=== PATIENT | female | born 1980 | race Caucasian/White ===

== ENCOUNTER 2022-06-06 17:03 | Emergency (ER) | payer SELFPAY ==
--- OUTSIDE RECORDS SUMMARY | 2022-06-06 17:06 | XMS REPORT | Continuity of Care Document ---
:1980 Author Organization [facility] t Address [address] [facility] [place] [address] Care Team Providers Name Role Phone Ronit MORGAN, Pham Primary Care Physician [phone] ISRA SESAY Attending Clinician Unavailable Problems This patient has no known problems. Allergies, Adverse Reactions, Alerts This patient has no known allergies or adverse reactions. Social History Social Habit Start Date Stop Date Quantity Comments Source History of Occasional tobacco Method ist tobacco use smoker Hospital Tobacco use and 2019-06-07 2019-06-07 Smokeless tobacco [facility] exposure 00:00:00 00:00:00 non-user Hospital Alcohol intake 2019-06-07 2019-06-07 [facility]finding[facility] Hospita l Sex Assigned At [birth year] [facility] 00:00:00 00:00:00 Hospital Smoking Status Start Date Stop Date Source Occasional tobacco smoker 2019-06-07 00:00:00 [facility] Medications This patient has no known medications. Procedures This patient has no known procedures. Encounters Start End Encounter Admission Attending Care Care Encounter Source Date/Time Date/Time Type Type Clinicians Facility Department ID 2019-06-07 2019-06-07 Emergency [facility] [id number] [place] 00:00:00 00:00:00 ISRA [address] Results This patient has no known results.
[2022-06-06 17:52] LABS: Hematocrit 38.5 % (36.0-45.0); Lymphocytes % 32.8 % (15.3-44.8); MCV 87.8 fL (80-100); MPV 8.4 fL (7.6-11.3); RBC Red Blood Cell Count 4.38 M/uL (3.86-4.86)
[2022-06-06 17:55] LABS: Specific Gravity 1.005 (1.005-1.030); Urine Bilirubin NEGATIVE (Negative); Urine Blood Negative (Negative); Urine Clarity Clear (Clear); Urine Color Colorless (Yellow); Urine Glucose NEGATIVE (Negative); Urine Protein NEGATIVE (Negative); Urine Urobilinogen Normal (Normal); Urine pH 6.5 (5.0-7.0)
[2022-06-06] MEDS ORDERED: LIDOCAINE VISCOUS 2% SOLN 15 ML UDC ONE (18:02)
[2022-06-06] MEDS ORDERED: MAGNES/ALUMIN/SIMET 30ML UCUP ONE (18:03)
[2022-06-06 18:08] LABS: ALT/SGPT 23 U/L (13-56); AST/SGOT 16 U/L (15-37); Albumin 3.6 g/dL (3.4-5.0); Alkaline Phosphatase 68 U/L (45-117); BUN Blood Urea Nitrogen 10 mg/dL (7-18); Bicarbonate 24 mEq/L (21-32); Bilirubin Total 0.2 mg/dL (0.2-1.0); Glomerular Filtration Rate 77 ml/min (=/>90); Glucose Level 126 mg/dL (74-106); Magnesium 2.4 mg/dL (1.6-2.4); Potassium 3.5 mEq/L (3.5-5.1); Protein, Total 7.1 g/dL (6.4-8.2); Sodium Level 137 mEq/L (136-145); Troponin High Sensitivity 3.3 pg/mL (<58.9)
[2022-06-06 18:15] LABS: Bilirubin Direct < 0.1 mg/dL (0-0.2)
[2022-06-06] MEDS ORDERED: KETOROLAC 30 MG/ML INJ ONE (18:30)
--- NOTE | 2022-06-06 18:41 | ER ---
Nurse's Notes [facility] Name: Desiree Landeros Age: 42 yrs Sex: Female : 1980 Arrival Date: 06/06/2022 Time: 17:05 Bed 20 Private MD: Diagnosis: Chest pain, unspecified;Dorsalgia, unspecified Presentation: 06/06 17:22 Chief complaint: Patient states: CP that radiates to the Right arm and neck for about a vg1 week; also stated "may have aspirated yesterday while I was eating a sandwich, I was rushing while eating and talking and I inhaled and started to choke and it felt like the food split to either side of my chest, I tried to cough it up but nothing came out and now im also feeling knot pains in my chest as well". 17:22 Coronavirus screen: Vaccine status: Patient reports receiving the 2nd dose of the covid vg1 vaccine. Client denies travel out of the [place] in the last 14 days. Ebola Screen: Patient negative for fever greater than or equal to 101.5 degrees Fahrenheit, and additional compatible Ebola Virus Disease symptoms Patient denies exposure to infectious person. Patient denies travel to an Ebola-affected area in the 21 days before illness onset. Initial Sepsis Screen: Does the patient meet any 2 criteria? No. Patient's initial sepsis screen is negative. Does the patient have a suspected source of infection? No. Patient's initial sepsis screen is negative. Risk Assessment: Do you want to hurt yourself or someone else? Patient reports no desire to harm self or others. Onset of symptoms was May 30, 2022. 17:22 Method Of Arrival: Ambulatory vg1 17:22 Acuity: MARGE 2 vg1 Triage Assessment: 17:34 General: Appears in no apparent distress. uncomfortable, Behavior is calm, cooperative. vg1 Pain: Complains of pain in chest Pain radiates to right arm and neck Pain currently is 5 out of 10 on a pain scale. Pain began x 1 week. Neuro: Level of Consciousness is awake, alert, obeys commands, Oriented to person, place, time, situation. Cardiovascular: Patient's skin is warm and dry. Respiratory: Airway is patent Respiratory effort is even, unlabored. 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 - Social history:: Smoking status: Patient reports the use of cigarette tobacco products, denies chronic smoking, but will smoke occasionally. Screenin:37 [facility] ED Fall Risk Assessment (Adult) History of falling in the last 3 months, vg1 including since admission No falls in past 3 months (0 pts) Confusion or Disorientation No (0 pts) Intoxicated or Sedated No (0 pts) Impaired Gait No (0 pts) Mobility Assist Device Used No (0 pt) Altered Elimination No (0 pt) Score/Fall Risk Level 0 - 2 = Low Risk Oriented to surroundings, Maintained a safe environment, Educated pt \\T\\ family on fall prevention, incl call for assistance when getting out of bed, Assessed \\T\\ reinforced patient's understanding of fall precautions. Abuse screen: Denies threats or abuse. Denies injuries from another. Nutritional screening: No deficits noted. Tuberculosis screening: No symptoms or risk factors identified. Assessment: 17:54 Reassessment: see triage assessment. mb9 18:28 General: Behavior is cooperative, anxious, crying. Pain: Complains of pain in chest. mb9 Neuro: Level of Consciousness is awake, alert, obeys commands, Oriented to person, place, time, situation, Appropriate for age. Cardiovascular: Heart tones S1 S2 present Patient's skin is warm and dry. Rhythm is regular. Respiratory: Airway is patent Respiratory effort is even, unlabored, Respiratory pattern is regular, symmetrical. Respiratory: Breath sounds are clear bilaterally. GI: No signs and/or symptoms were reported involving the gastrointestinal system. : No signs and/or symptoms were reported regarding the genitourinary system. Derm: Skin is pink, warm \\T\\ dry. Musculoskeletal: Range of motion: intact in all extremities. Vital Signs: 17:22 BP 126 / 80; Pulse 76; Resp 16; Pulse Ox 99% on R/A; Weight 90.72 kg; Height 5 ft. 3 vg1 in. ; Pain 5/10; 17:55 BP 122 / 78 LA; mb9 17:55 BP 106 / 70 RA; mb9 18:36 BP 108 / 74; Pulse 79; Resp 16; Pulse Ox 100% on R/A; mb9 17:22 Body Mass Index 35.43 (90.72 kg, 160.02 cm) vg1 17:22 Pain Scale: Adult vg1 ED Course: 17:05 Patient arrived in ED. mr 17:06 Rosendo Ley PA is PHCP. cp 17:06 Main Moore MD is Attending Physician. cp 17:25 Ann Gannon, ALLIE is Primary Nurse. mb9 17:30 EKG done, by ED staff, reviewed by Rosendo GARCIA. Inserted saline lock: 20 gauge in mb9 left antecubital area, using aseptic technique. 17:34 Triage completed. vg1 17:34 Arm band placed on. vg1 17:37 Patient has correct armband on for positive identification. Placed in gown. Bed in low vg1 position. Call light in reach. Side rails up X 1. Client placed on continuous cardiac and pulse oximetry monitoring. NIBP monitoring applied. 17:37 Patient maintains SpO2 saturation greater than 95% on room air. vg1 17:42 Basic Metabolic Panel Sent. mb9 17:42 CBC with Diff Sent. mb9 17:42 D-Dimer Sent. mb9 17:42 LFT's Sent. mb9 17:42 Magnesium Sent. mb9 17:42 Troponin HS Sent. mb9 17:53 Urinalysis W/Microscopic Sent. mb9 17:53 PREGU Sent. mb9 18:30 XRAY Chest (1 view) In Process Unspecified. EDMS 18:38 Miguel Ángel Nguyen MD is Referral Physician. cp 18:45 No provider procedures requiring assistance completed. IV discontinued, intact, mb9 bleeding controlled, No redness/swelling at site. Pressure dressing applied. Administered Medications: 18:02 Drug: GI Cocktail without - (Maalox PO Suspension 30 ml, Lidocaine Mucous mb9 Membrane Liquid 2 % 15 ml) Route: PO; 18:24 Follow up: Response: No adverse reaction mb9 18:28 Drug: Ketorolac IVP 15 mg Route: IVP; Site: left antecubital; mb9 Medication: 17:38 VIS not applicable for this client. vg1 Outcome: 18:40 Discharge ordered by . cp 18:45 Discharged to home ambulatory. mb9 18:45 Condition: stable 18:45 Discharge instructions given to patient, Instructed on discharge instructions, follow up and referral plans. Demonstrated understanding of instructions, follow-up care, medications, Prescriptions given X 3. 18:50 Patient left the ED. mb9 Signatures: Dispatcher [employer] Ann Strauss Corey, PA PA cp Garcia, Victoria RN RN vg1 Ann Gannon, RN RN mb9
--- NOTE | 2022-06-06 18:41 | EDPHYS ---
Physician Documentation [facility] Name: Desiree Landeros Age: 42 yrs Sex: Female : 1980 Arrival Date: 06/06/2022 Time: 17:05 Bed 20 Private MD: ED Physician Main Moore HPI: 06/06 17:30 This 42 yrs old Female presents to ER via Unassigned with complaints of Chest Pain. cp 17:30 The patient or guardian reports chest pain that is located primarily in the anterior cp chest wall, bilaterally with right worse than left. 17:30 Onset: 1 week(s) ago. cp 17:30 Associated signs and symptoms: Pertinent positives: pain to right side of neck and cp right upper back. 17:30 Duration: The patient or guardian reports multiple episodes, that wax and wane. Patient cp reports chest pain worse since yesterday after eating sandwich. Feels like she aspirated while eating. Denies cough, shortness of breath. 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 - Social history:: Smoking status: Patient reports the use of cigarette tobacco products, denies chronic smoking, but will smoke occasionally. ROS: 17:33 Constitutional: Negative for body aches, chills, fever, poor PO intake. cp 17:33 Eyes: Negative for injury, pain, redness, and discharge. cp 17:33 ENT: Negative for drainage from ear(s), ear pain, sore throat, difficulty swallowing, cp difficulty handling secretions. 17:33 Cardiovascular: Positive for chest pain, Negative for edema. 17:33 Respiratory: Negative for cough, shortness of breath, wheezing. 17:33 Abdomen/GI: Negative for abdominal pain, vomiting, diarrhea, constipation. 17:33 Back: Positive for pain at rest, pain with movement, of the right trapezius and right scapular area. 17:33 Neuro: Negative for altered mental status, headache, numbness, syncope, weakness. 17:33 All other systems are negative. Exam: 17:38 Constitutional: The patient appears in no acute distress, alert, awake, cp non-diaphoretic, non-toxic, well developed, well nourished, overweight 17:38 Head/Face: Normocephalic, atraumatic. cp 17:38 Eyes: Periorbital structures: appear normal, Conjunctiva: normal, no exudate, no injection, Sclera: no appreciated abnormality, Lids and lashes: appear normal, bilaterally. 17:38 ENT: External ear(s): are unremarkable, Nose: is normal, Mouth: Lips: moist, Oral mucosa: pink and intact, moist, Posterior pharynx: is normal, airway is patent, no erythema, no exudate. 17:38 Neck: ROM/movement: pain, that is mild, limited range of motion, is not appreciated, Meningeal signs: are not present, nuchal rigidity, is not appreciated. 17:38 Chest/axilla: Inspection: normal. 17:38 Cardiovascular: Rate: normal, Rhythm: regular, Pulses: Pulses are 2+ in right radial artery and left radial artery. Edema: is not appreciated, JVD: is not appreciated. 17:38 Respiratory: the patient does not display signs of respiratory distress, Respirations: normal, no use of accessory muscles, no retractions, labored breathing, is not present, Breath sounds: are clear throughout, no decreased breath sounds, no stridor, no wheezing. 17:38 Abdomen/GI: Inspection: abdomen appears normal, Palpation: abdomen is soft and non-tender, in all quadrants. 17:38 Back: pain, that is mild, of the right trapezius and right scapular area, ROM is normal. 17:38 Skin: no rash present. 17:38 Neuro: Orientation: to person, place \T\ time. Mentation: is normal, Cerebellar function: is grossly normal, Motor: moves all fours, strength is normal, Sensation: is normal. 17:40 ECG was reviewed by the Attending Physician. cp Vital Signs: 17:22 BP 126 / 80; Pulse 76; Resp 16; Pulse Ox 99% on R/A; Weight 90.72 kg; Height 5 ft. 3 vg1 in. ; Pain 5/10; 17:55 BP 122 / 78 LA; mb9 17:55 BP 106 / 70 RA; mb9 18:36 BP 108 / 74; Pulse 79; Resp 16; Pulse Ox 100% on R/A; mb9 17:22 Body Mass Index 35.43 (90.72 kg, 160.02 cm) vg1 17:22 Pain Scale: Adult vg1 MDM: 17:24 Patient medically screened. cp 18:00 Differential diagnosis: abnormal EKG, acute myocardial infarction, anxiety, chest wall cp pain, pericarditis, pleurisy, pneumonia, pneumothorax, pulmonary embolus, stable angina, unstable angina. 18:40 Data reviewed: vital signs, nurses notes, lab test result(s), EKG, radiologic studies, cp plain films. 18:40 Consideration of Admission/Observation Escalation of care including cp admission/observation considered. I considered the following discharge prescriptions or medication management in the emergency department Medications were administered in the Emergency Department. See MAR. Independent interpretation of the following test(s) in the Emergency Department EKG: See my EKG interpretation above X-Ray: My interpretation is chest image negative for infiltrates. Test considered but Not performed: CT: chest. Counseling: I had a detailed discussion with the patient and/or guardian regarding: the historical points, exam findings, and any diagnostic results supporting the discharge/admit diagnosis, lab results, radiology results, the need for outpatient follow up, a family practitioner, to return to the emergency department if symptoms worsen or persist or if there are any questions or concerns that arise at home. Response to treatment: the patient's symptoms have markedly improved after treatment, and as a result, I will discharge patient. Special discussion: Based on the patient's history, exam, and Dx evaluation, there is no indication for emergent intervention or inpatient Tx. It is understood by the patient/guardian that if the Sx's persist or worsen they need to return immediately for re-evaluation. 06/06 17:17 Order name: Basic Metabolic Panel; Complete Time: 18:16 06/06 18:17 Interpretation: Normal except: CL 108; GLUC 126; GFR 77. 06/06 17:17 Order name: CBC with Diff; Complete Time: 18:12 cp 06/06 18:12 Interpretation: Reviewed. 06/06 17:17 Order name: D-Dimer; Complete Time: 18:12 cp 06/06 18:12 Interpretation: Reviewed. 06/06 17:17 Order name: LFT's; Complete Time: 18:16 cp 06/06 17:17 Order name: Magnesium; Complete Time: 18:16 cp 06/06 17:17 Order name: Troponin HS; Complete Time: 18:16 cp 06/06 18:17 Interpretation: Reviewed. cp 06/06 17:17 Order name: PREGU; Complete Time: 18:21 cp 06/06 18:22 Interpretation: Reviewed. cp 06/06 17:17 Order name: Urinalysis W/Microscopic; Complete Time: 18:21 cp 06/06 18:21 Interpretation: Within normal limits. cp 06/06 17:17 Order name: XRAY Chest (1 view) cp 06/06 17:17 Order name: EKG; Complete Time: 17:18 cp 06/06 17:17 Order name: Cardiac monitoring; Complete Time: 17:26 cp 06/06 17:17 Order name: EKG - Nurse/Tech; Complete Time: 17:42 cp 06/06 17:17 Order name: IV Saline Lock; Complete Time: 17:42 cp 06/06 17:17 Order name: Labs collected and sent; Complete Time: 17:42 cp 06/06 17:17 Order name: O2 Per Protocol; Complete Time: 17:26 cp 06/06 17:17 Order name: O2 Sat Monitoring; Complete Time: 17:26 cp 06/06 17:30 Order name: Blood Pressure Recheck: bilateral upper extremity; Complete Time: 17:54 cp EC:40 Rate is 72 beats/min. Rhythm is regular. WI interval is normal. QRS interval is normal. cp QT interval is normal. T waves are Inverted in lead aVR. Interpreted by me. Reviewed by me. Administered Medications: 18:02 Drug: GI Cocktail without - (Maalox PO Suspension 30 ml, Lidocaine Mucous mb9 Membrane Liquid 2 % 15 ml) Route: PO; 18:24 Follow up: Response: No adverse reaction mb9 18:28 Drug: Ketorolac IVP 15 mg Route: IVP; Site: left antecubital; mb9 Disposition: 19:13 Co-signature as Attending Physician, Main Moore MD I reviewed the patient's care rt provided by the Advanced Practice Provider and agree with the diagnosis and treatment plan. Disposition Summary: 06/06/22 18:40 Discharge Ordered Location: Home cp Problem: new cp Symptoms: have improved cp Condition: Stable cp Diagnosis - Chest pain, unspecified cp - Dorsalgia, unspecified cp Followup: cp - With: Miguel Ángel Nguyen MD - When: 1 week - Reason: symptoms continue Discharge Instructions: - Discharge Summary Sheet cp - Acute Back Pain, Adult cp - Nonspecific Chest Pain, Adult cp - Gastroesophageal Reflux Disease, Adult cp Forms: - Medication Reconciliation Form cp - Thank You Letter cp - Antibiotic Education cp - Prescription Opioid Use cp Prescriptions: - Ibuprofen 800 mg Oral Tablet - take 1 tablet by ORAL route every 8 hours As needed take with food; 30 tablet; cp Refills: 0, Product Selection Permitted - Protonix 40 mg Oral Tablet - take 1 tablet by ORAL route once daily; 30 tablet; Refills: 0, Product cp Selection Permitted - Cyclobenzaprine 10 mg Oral Tablet - take 1 tablet by ORAL route every 8 hours As needed; 20 tablet; Refills: 0, cp Product Selection Permitted Signatures: Dispatcher [employer] EDMS Rosendo Ley PA PA cp Viktoriya Beckham RN RN vg1 Ann Gannon RN RN mb9 Main Moore MD MD rt Corrections: (The following items were deleted from the chart) 06/07 15:14 15:14 Constitutional: Negative for body aches, chills, fever, poor PO intake, cp cp 18:05 06/06 17:30 The pain does not radiate. cp cp
--- NOTE | 2022-06-06 19:11 | RAD REPORT ---
EXAM DESCRIPTION: [place] Single View06/06/2022 6:29 pm CLINICAL HISTORY: CHEST PAIN COMPARISON: No comparisons TECHNIQUE: Portable AP view of the chest. FINDINGS: The lungs are clear. No pneumothorax or effusion. The cardiomediastinal contours are unrem arkable. IMPRESSION: No acute cardiopulmonary process.
[2022-06-06 19:17] VITALS: BP 108/74; O2SAT 100
--- NOTE | 2022-06-07 12:14 | EKG ---
Test Date: 2022-06-06 Test Time: 17:35:07 Plant Ecologist: MB MEASUREMENT RESULTS: Intervals: Rate: 72 OR: 146 QRSD: 98 QT: 390 QTc: 427 [place]: P: 20 OR: 146 QRS: 72 T: 54 INTERPRETIVE STATEMENTS: Normal sinus rhythm Normal ECG No previous ECG available for comparison Electronically Signed On 06-07-22 12:13:02 CDT by Yon Regalado
== END 2022-06-06 18:50 | disposition home or self-care (01) ==
LOC: ER 17:03
DX: R07.89 Other chest pain (principal); M54.9 Dorsalgia, unspecified; F17.210 Nicotine dependence, cigarettes, uncomplicated
CPT/HCPCS: 36415; 71045; 80048; 80076; 81001; 81025; 83735; 84484; 85025; 85379; 93005

== ENCOUNTER 2023-08-20 14:51 | Emergency (ER) | payer OTHER, SELFPAY ==
[2023-08-20 15:47] LABS: Absolute Basophils 0.1 K/uL (0-0.5); Absolute Eosinophils 0.2 K/uL (0-0.5); Absolute Lymphocytes (CBC) 2.9 K/uL (0.7-4.9); Absolute Monocytes 0.7 K/uL (0.1-1.3); Absolute Neutrophil 5.7 K/uL (1.8-8.0); Basophils % 0.9 % (0-1.3); Eosinophils % 1.7 % (0-4.4); Hematocrit 37.4 % (36.0-45.0); Hemoglobin 12.3 g/dL (12.0-15.0); Lymphocytes % 30.2 % (15.3-44.8); MCH 28.4 pg (27.0-35.0); MCHC 32.9 g/dL (32.0-36.0); MCV 86.3 fL (80-100); MPV 8.3 fL (7.6-11.3); Monocytes % 7.6 % (3.3-12.3); Neutrophils % 59.6 % (41.7-73.7); Nucleated Red Blood Cells % 0.2 % (0-0); Platelets 293 thou/uL (152-406); RBC Red Blood Cell Count 4.33 M/uL (3.86-4.86)
[2023-08-20 16:02] LABS: Anion Gap 7.9 mEq/L (5.0-15.0); BUN Blood Urea Nitrogen 14 mg/dL (7-18); Bicarbonate 28 mEq/L (21-32); Glomerular Filtration Rate 82 ml/min (=/>90); Glucose Level 92 mg/dL (74-106); Potassium 3.9 mEq/L (3.5-5.1); Sodium Level 136 mEq/L (136-145)
[2023-08-20 16:03] LABS: Troponin High Sensitivity < 3.0 pg/mL (<58.9)
--- NOTE | 2023-08-20 16:32 | ER ---
Nurse's Notes [facility] Name: Desiree Anderson Age: 43 yrs Sex: Female : 1980 Arrival Date: 08/20/2023 Time: 14:51 Bed 25 Private MD: Diagnosis: Chest pain, unspecified Presentation: 08/19 14:59 Chief complaint: Patient states: "Since Saturday, I've been having CP, fatigue, blurry mb9 vision, legs feeling heavy, cramps in my calf, pain in my neck and back, heartburn, and high BP.". Coronavirus screen: At this time, the client does not indicate any symptoms associated with coronavirus-19. Ebola Screen: No symptoms or risks identified at this time. Initial Sepsis Screen: Does the patient meet any 2 criteria? No. Patient's initial sepsis screen is negative. Does the patient have a suspected source of infection? No. Patient's initial sepsis screen is negative. Risk Assessment: Do you want to hurt yourself or someone else? Patient reports no desire to harm self or others. Onset of symptoms was August 20, 2023. 14:59 Method Of Arrival: Ambulatory mb9 14:59 Acuity: MARGE 3 mb9 Triage Assessment: 15:01 General: Appears in no apparent distress. Behavior is anxious. Pain: Complains of pain mb9 in chest Pain radiates to face, back, right leg, left leg and neck. EENT: No signs and/or symptoms were reported regarding the EENT system. Neuro: [place] Agitation-Sedation Scale (RASS): 0 - Alert and Calm Level of Consciousness is awake, alert, obeys commands, Oriented to person, place, time, situation, Appropriate for age. Cardiovascular: Reports chest pain, Patient's skin is warm and dry. Respiratory: Airway is patent Respiratory effort is even, unlabored, Respiratory pattern is regular, symmetrical. GI: No signs and/or symptoms were reported involving the gastrointestinal system. : No signs and/or symptoms were reported regarding the genitourinary system. Derm: Skin is pink, warm \\T\\ dry. Musculoskeletal: Reports pain in right arm, left arm, right leg and left leg. Historical: - Allergies: 15:01 No Known Allergies; mb9 - Home Meds: 15: None [Active]; mb9 - PMHx: 15:01 Anxiety; depressive disorder; PTSD; mb9 - PSHx: 15:01 section; Tonsillectomy; mb9 - Immunization history:: Adult Immunizations up to date. - Infectious Disease History:: Denies. - Social history:: Smoking status: Reported history of juuling and/or vaping. Screenin:17 [facility] ED Fall Risk Assessment (Adult) History of falling in the last 3 months, as6 including since admission No falls in past 3 months (0 pts) Confusion or Disorientation No (0 pts) Intoxicated or Sedated No (0 pts) Impaired Gait No (0 pts) Mobility Assist Device Used No (0 pt) Altered Elimination No (0 pt) Score/Fall Risk Level 0 - 2 = Low Risk Oriented to surroundings, Maintained a safe environment, Educated pt \\T\\ family on fall prevention, incl call for assistance when getting out of bed, Assessed \\T\\ reinforced patient's understanding of fall precautions. Abuse screen: Denies threats or abuse. Denies injuries from another. Nutritional screening: No deficits noted. Tuberculosis screening: No symptoms or risk factors identified. Assessment: 16:17 Reassessment: Patient appears in no apparent distress at this time. as6 Vital Signs: 14:59 BP 136 / 87; Pulse 80; Resp 18; Temp 98.2; Pulse Ox 100% on R/A; Weight 104.33 kg; mb9 Height 5 ft. 3 in. ; Pain 6/10; 16:18 BP 114 / 77; Pulse 84; Resp 18; Pulse Ox 100% ; as6 14:59 Body Mass Index 40.74 (104.33 kg, 160.02 cm) mb9 14:59 Pain Scale: Adult mb9 ED Course: 14:53 Patient arrived in ED. rg4 14:59 Lavon Marquez MD is Attending Physician. ec2 15:00 Triage completed. mb9 15:01 Arm band placed on. mb9 15:01 EKG done, by ED staff, reviewed by Lavon Marquez MD. mb9 15:25 Initial lab(s) drawn, by dc, sent to lab. Inserted saline lock: 20 gauge in left jg11 antecubital area, using aseptic technique. Blood collected. 15:56 XRAY Chest (1 view) In Process Unspecified. EDMS 16:08 Kodak Phillips, RN is Primary Nurse. as6 16:17 Bed in low position. Call light in reach. Side rails up X 1. PO fluids given. as6 16:31 Provided Education on: follow up. as6 16:31 No provider procedures requiring assistance completed. as6 16:32 Yon Regalado MD is Referral Physician. ec2 16:37 IV discontinued, intact, bleeding controlled, No redness/swelling at site. Pressure as6 dressing applied. Administered Medications: No medications were administered Medication: 16:18 VIS not applicable for this client. as6 Outcome: 16:31 Discharged to home ambulatory, as6 16:31 Condition: stable 16:32 Discharge ordered by MD. ec2 16:36 Discharge instructions given to patient, Instructed on discharge instructions, follow as6 up and referral plans. medication usage, Demonstrated understanding of instructions, follow-up care, medications, Prescriptions given X 2, 16:37 Patient left the ED. as6 Signatures: Dispatcher [employer] EDCA Kiara Beckham rg4 Kdoak Phillips, ALLIE RN as6 Ann Gannon, RN RN mb9 Lavon Marquez MD MD ec2 Loi Garcia jg11
--- NOTE | 2023-08-20 16:33 | EDPHYS ---
Physician Documentation [facility] Name: Desiree Anderson Age: 43 yrs Sex: Female : 1980 Arrival Date: 08/20/2023 Time: 14:51 Bed 25 Private MD: ED Physician Lavon Marquez HPI: 08/19 15:07 This 43 yrs old Female presents to ER via Ambulatory with complaints of Chest ec2 Pain, Back Pain, High Blood Pressure. 15:07 Patient arrives today for evaluation of multiple months of chest pain. Patient reports ec2 that she has been experiencing intermittent symptoms ongoing for that timeframe, patient states she grew concerned because she noted elevated blood pressures. Patient reports no difficulty breathing. Denies any cough or cold symptoms. Has not seen primary care for this at this time.. Historical: - Allergies: 15:01 No Known Allergies; mb9 - Home Meds: 15:01 None [Active]; mb9 - PMHx: 15:01 Anxiety; depressive disorder; PTSD; mb9 - PSHx: 15:01 section; Tonsillectomy; mb9 - Immunization history:: Adult Immunizations up to date. - Infectious Disease History:: Denies. - Social history:: Smoking status: Reported history of juuling and/or vaping. ROS: 15:07 Constitutional: as per hpi ec2 Exam: 15:07 Constitutional: GEN: NAD Head: atraumatic Eyes: EOMI Ears: External ears are ec2 normal. CV: regular rate LUNGS: no respiratory distress ABD: non-distended SKIN: no evidence of rashes MSK: no evidence of trauma NEURO: moves all extremities equally Vital Signs: 14:59 BP 136 / 87; Pulse 80; Resp 18; Temp 98.2; Pulse Ox 100% on R/A; Weight 104.33 kg; mb9 Height 5 ft. 3 in. ; Pain 6/10; 16:18 BP 114 / 77; Pulse 84; Resp 18; Pulse Ox 100% ; as6 14:59 Body Mass Index 40.74 (104.33 kg, 160.02 cm) mb9 14:59 Pain Scale: Adult mb9 MDM: 14:59 Patient medically screened. ec2 15:07 Data reviewed: vital signs. ED course: Patient arrives today for evaluation of elevated ec2 blood pressure and chest pain. Examination remarkable for well-appearing nontoxic dividual is otherwise in no acute distress with a reassuring examination. Will obtain lab work, EKG, chest x-ray. Differential diagnosis includes ACS, arrhythmia, electrolyte disturbances.. 15:08 ED course: EKG independently reviewed and interpreted by me, shows normal sinus rhythm, ec2 rate of 74, no acute ST segment elevations, intervals are nonconcerning.. 15:10 ED course: EKG independently reviewed and interpreted by me, shows normal sinus rhythm, ec2 rate of 74, no acute ST segment elevations, intervals are nonconcerning. . 16:09 ED course: Chest x-ray independently reviewed and interpreted by me, shows no acute ec2 intrathoracic process. Metabolic profile is reassuring, CBC nonactionable, troponin is undetectable. . 16:09 ED course: MDM: Differential diagnosis as documented above in ED course; All lab tests ec2 ordered and reviewed as documented above; Independent interpretation of tests: EKG as above; radiograph as above; . 16:31 ED course: Patient also requests prescription for Atarax for her anxiety.. ec2 / 14:59 Order name: Basic Metabolic Panel; Complete Time: 16:09 ec2 / 14:59 Order name: CBC with Diff; Complete Time: 16:09 ec2 08/19 14:59 Order name: Troponin HS; Complete Time: 16:09 ec2 / 14:59 Order name: XRAY Chest (1 view) ec2 08/19 14:59 Order name: EKG; Complete Time: 15:00 ec2 08/19 14:59 Order name: Cardiac monitoring; Complete Time: 16:09 ec2 / 14:59 Order name: EKG - Nurse/Tech; Complete Time: 15:06 ec2 / 14:59 Order name: IV Saline Lock; Complete Time: 15:56 ec2 08/19 14:59 Order name: Labs collected and sent; Complete Time: 15:56 ec2 08/19 14:59 Order name: O2 Per Protocol; Complete Time: 16:09 ec2 08/19 14:59 Order name: O2 Sat Monitoring; Complete Time: 16:09 ec2 Administered Medications: No medications were administered Disposition Summary: 08/20/23 16:32 Discharge Ordered Notes: Location: Home ec2 Condition: Stable ec2 Diagnosis - Chest pain, unspecified ec2 Followup: ec2 - With: Private Physician - When: - Reason: Re-evaluation by your physician Followup: ec2 - With: Yon Regalado MD - When: - Reason: Recheck today's complaints Discharge Instructions: - Discharge Summary Sheet ec2 - Nonspecific Chest Pain, Adult, [id number] ec2 Forms: - Medication Reconciliation Form ec2 - Antibiotic Education ec2 - Prescription Opioid Use ec2 - Patient Portal Instructions ec2 - Leadership Thank You Letter ec2 Prescriptions: - Hydroxyzine HCl 50 mg Oral Tablet - take 1 tablet ORAL route every 8 hours As needed; 20 tablet; Refills: 0, ec2 Product Selection Permitted - methocarbamol 500 mg Oral tablet - take 2 tablets ORAL route 4 times per day; 30 tablet; Refills: 0, Product ec2 Selection Permitted Signatures: Dispatcher [employer] Ann Santiago RN RN mb9 Lavon Marquez MD MD ec2
--- NOTE | 2023-08-20 16:38 | RAD REPORT ---
EXAM DESCRIPTION: [facility] Single View08/20/2023 3:54 pm CLINICAL HISTORY: Chest pain COMPARISON: 2022 FINDINGS: The lungs appear clear of acute infiltrate. The heart is normal size IMPRESSION: No acute abnormalities displayed
[2023-08-20 17:30] VITALS: BP 114/77; TEMP 98.2; O2SAT 100
--- NOTE | 2023-08-21 16:34 | EKG ---
Test Date: 2023-08-20 Test Time: 14:57:58 [employer] Operator: MB MEASUREMENT RESULTS: Intervals: Rate: 74 TN: 136 QRSD: 90 QT: 396 QTc: 439 [place]: P: 19 TN: 136 QRS: 71 T: 48 INTERPRETIVE STATEMENTS: Normal sinus rhythm Normal ECG No previous ECG available for comparison Electronically Signed On 08-21-23 16:32:34 CDT by Lenny Ellis
== END 2023-08-20 16:37 | disposition home or self-care (01) ==
LOC: ER 14:51
DX: R07.9 Chest pain, unspecified (principal)
CPT/HCPCS: 36415; 71045; 80048; 84484; 85025; 93005; 99284